=== PATIENT | female | born 1975 | race African-American/Black ===

== ENCOUNTER 2018-07-03 09:48 | Emergency (ER) | payer OTHER ==
[2018-07-03 10:02] VITALS: BP 113/68; PULSE 71; TEMP 98.8; BMI 29.3
--- NOTE | 2018-07-03 10:21 | PDOC ---
History of Present Illness - General Chief Complaint: Vaginal Bleeding Stated Complaint: VAGINAL BLEEDING Time Seen by Provider: 07/03/18 10:11 History Source: Patient Exam Limitations: Clinical Condition - History of Present Illness Initial Comments: 07/03/18 10:20 Patient with no significant past medical history LMP May 08 present with complaint of vaginal spotting since yesterday and now increased vaginal bleeding soaking 1 pad since last night. Patient report she had home test which was positive and was seen in an urgent care yesterday for vaginal spotting and test done was also positive. Patient denies N/V, dizziness , SOB, CP, palpitation. 07/03/18 10:58 Timing/Duration: 24 hours Past History - Past Medical History Allergies/Adverse Reactions: Allergies Allergy/AdvReac Type Severity Reaction Status Date / Time amoxicillin Allergy Verified 07/03/18 09:58 Penicillins Allergy Verified 07/03/18 09:58 Home Medications: Ambulatory Orders Amox-Tr/K Cl [Augmentin 875Mg Tablet] 1 tab PO BID #20 tablet 08/29/12 No Home Medications 0 dose .ROUTE UTDICT 08/29/12 COPD: No Thyroid Disease: Yes (HYPERTHYROID) - Immunization History Immunization Up to Date: Yes - Suicide/Smoking/Psychosocial Hx Smoking Status: No Smoking History: Never smoked Number of Cigarettes Smoked Daily: 0 Information on smoking cessation initiated: No Drug/Substance Use Hx: Yes (marijuana) Review of Systems - Review of Systems Able to Perform ROS?: Yes Is the patient limited Greek proficient: No Constitutional: No: Malaise, Weakness HEENTM: No: Blurred Vision Respiratory: No: Symptoms reported, Shortness of Breath Cardiac (ROS): No: Symptoms Reported, See HPI, Chest Pain, Edema, Irregular Heart Rate, Lightheadedness, Palpitations, Syncope, Chest Tightness, Other ABD/GI: No: Nausea, Vomiting, Abdominal cramping : Yes: See HPI, Other (vaginal bleeding) All Other Systems: Reviewed and Negative *Physical Exam - Vital Signs Last Vital Signs Temp Pulse Resp BP Pulse Ox 98.8 F 71 16 113/68 100 07/03/18 09:57 07/03/18 09:57 07/03/18 09:57 07/03/18 09:57 07/03/18 09:57 - Physical Exam General Appearance: Yes: Nourished, Appropriately Dressed. No: Apparent Distress HEENT: positive: Normal ENT Inspection Neck: positive: Supple Respiratory/Chest: negative: Respiratory Distress, Accessory Muscle Use Cardiovascular: negative: Regular Rhythm, Regular Rate Female Pelvic Exam: positive: normal external exam, cervical os closed, CMT, vaginal bleeding (scant dark blood in vaginal vault. no active bleeding. no visible lesions. ). negative: adnexal tenderness Gastrointestinal/Abdominal: positive: Normal Bowel Sounds, Flat, Soft. negative : Organomegaly Musculoskeletal: positive: Normal Inspection Neurologic: positive: Fully Oriented, Normal Mood/Affect Moderate Sedation - Procedure Monitoring Vital Signs: Procedure Monitoring Vital Signs Temperature 98.8 F 07/03/18 09:57 Pulse Rate 71 07/03/18 09:57 Respiratory Rate 16 07/03/18 09:57 Blood Pressure 113/68 07/03/18 09:57 O2 Sat by Pulse Oximetry (%) 100 07/03/18 09:57 ED Treatment Course - LABORATORY CBC & Chemistry Diagram: 07/03/18 11:30 07/03/18 11:30 Medical Decision Making - Medical Decision Making 07/03/18 11:08 Patient LMP May 08 present with complaint of one day history of vaginal bleeding soaking 1 pad since yesterday. Patient reported doing home test and week ago which was positive and repeat test in urgent care yesterday was also positive. Exam significant for trace dark blood in vaginal vault with no active vaginal bleeding. Cervical os close. No cervical motion tenderness. No visible lesion on exam. CBC, CMP and type and screen labs ordered. Beta hCG lab ordered. Transvaginal ultrasound ordered. 07/03/18 13:39 CBC and chemistry lab normal. Beta hcg 452. Call made to patient [facility] to ask for visit done yesterday and beta hCG done in [facility] yesterday was 860 which is 50% less today. Pelvic ultrasound shows no low laying gestational sac. Patient has f/u apt with [facility] in 2 days . Patient staple for discharge with strict instructions *DC/Admit/Observation/Transfer Diagnosis at time of Disposition: Threatened - Discharge Dispostion Disposition: HOME Condition at time of disposition: Stable Decision to Admit order: No - Referrals - Patient Instructions Printed Discharge Instructions: DI for Threatened Additional Instructions: Follow-up with [facility] 2 days as scheduled for repeat blood work. Come back to emergency room if worsening vaginal bleeding. - Post Discharge Activity Forms/Work/School Notes: Back to Work
[2018-07-03 11:47] LABS: BASO % 0.9 % (0-2.0); EOS % 2.4 % (0-4.5); HEMATOCRIT 36.6 % (32.4-45.2); HEMOGLOBIN 12.8 GM/dL (10.7-15.3); LYMPH % 24.5 % (8-40); MCH 32.1 pg (25.7-33.7); MCHC 34.8 g/dl (32.0-36.0); MEAN CELL VOLUME 92.2 fl (80-96); MEAN PLT VOLUME 9.1 fl (7.5-11.1); MONO % 8.6 % (3.8-10.2); NEUT % 63.6 % (42.8-82.8); PLATELET COUNT 245 K/MM3 (134-434); RBC 3.97 M/mm3 (3.60-5.2); WHITE BLOOD COUNT 5.1 K/mm3 (4.0-10.0)
[2018-07-03 12:06] LABS: URINE APPEARANCE CLEAR; URINE BILIRUBIN NEGATIVE (<2.0 mg/dL); URINE COLOR LTYELLOW; URINE GLUCOSE (UA) NEGATIVE (NEGATIVE); URINE KETONE NEGATIVE (NEGATIVE); URINE LEUK ESTERASE NEGATIVE (NEGATIVE); URINE NITRITE NEGATIVE (NEGATIVE); URINE PROTEIN NEGATIVE (NEGATIVE); URINE UROBILINOGEN NEGATIVE mg/dL (0.2-1.0)
[2018-07-03 12:08] LABS: EPI CELLS RARE /HPF (FEW); URINE MUCUS RARE
[2018-07-03 12:15] LABS: ALBUMIN 3.5 g/dl (3.4-5.0); ALK PHOS 87 U/L (45-117); ANION GAP 6 MMOL/L (8-16); BILIRUBIN,TOTAL 0.3 mg/dL (0.2-1); BLOOD UREA NITROGEN 8 mg/dL (7-18); CALCIUM 8.7 mg/dL (8.5-10.1); CHLORIDE 106 mmol/L (98-107); CO2 26 mmol/L (21-32); CREATININE 0.7 mg/dL (0.55-1.3); GLUCOSE,RANDOM 96 mg/dL (74-106); POTASSIUM 4.2 mmol/L (3.5-5.1); SGOT/AST 12 U/L (15-37); SGPT/ALT 16 U/L (13-61); SODIUM 139 mmol/L (136-145); TOT PROT 7.4 g/dl (6.4-8.2)
--- NOTE | 2018-07-03 13:03 | PDOC ---
*Physical Exam - Vital Signs Last Vital Signs Temp Pulse Resp BP Pulse Ox 98.8 F 71 16 113/68 100 07/03/18 09:57 07/03/18 09:57 07/03/18 09:57 07/03/18 09:57 07/03/18 09:57 - Physical Exam General Appearance: Yes: Nourished Respiratory/Chest: positive: Lungs Clear, Normal Breath Sounds Cardiovascular: positive: Regular Rhythm, Regular Rate, S1, S2 Gastrointestinal/Abdominal: positive: Normal Bowel Sounds, Flat, Soft ED Treatment Course - LABORATORY CBC & Chemistry Diagram: 07/03/18 11:30 07/03/18 11:30 - ADDITIONAL ORDERS Additional order review: Laboratory Results 07/03/18 07/03/18 11:30 11:30 Sodium 139 Potassium 4.2 Chloride 106 Carbon Dioxide 26 Anion Gap 6 L BUN 8 Creatinine 0.7 Creat Clearance w eGFR > 60 Random Glucose 96 Calcium 8.7 Total Bilirubin 0.3 AST 12 L ALT 16 Alkaline Phosphatase 87 Total Protein 7.4 Albumin 3.5 Beta HCG, Quant 457.1 Urine Color Ltyellow Urine Appearance Clear Urine pH 5.0 Ur Specific [place] 1.013 Urine Protein Negative Urine Glucose (UA) Negative Urine Ketones Negative Urine Blood 3+ H Urine Nitrite Negative Urine Bilirubin Negative Urine Urobilinogen Negative Ur Leukocyte Esterase Negative Urine WBC (Auto) 1 Urine RBC (Auto) 36 Ur Epithelial Cells Rare Urine Mucus Rare 07/03/18 11:30 RBC 3.97 MCV 92.2 MCHC 34.8 RDW 14.0 MPV 9.1 Neutrophils % 63.6 Lymphocytes % 24.5 Monocytes % 8.6 Eosinophils % 2.4 Basophils % 0.9 Medical Decision Making - Medical Decision Making 07/03/18 13:01 42 yo F here currently 6 weeks with LMP 11.15 here wtih c/o vaginal spotting. pt statesspotting started yesterday. was seen in 30 s araceli by packing room worker yesterday. had blood workdrawn bhcg was 800. today feels spotting has increased. no h/o ectopic. not lightheaded. mild cramping . no mod factors. differential threatened ab, ab in progress, ectopic. claribel labs blood type tvus. labs revealed decreasing bhcg 400, likely ongoing miscarriage, abnormal pregnanyc. ultrasound with pole in gest sac, no heart beat detected. beta low, will require repeat bhcg in 48 hrs. has appt scheduled with packing room worker . pt seen and examined in conjunction with APRIL Gomez, agree with plan.
== END 2018-07-03 13:54 | disposition home or self-care (01) ==
LOC: JER 09:48
DX: O26.891 Other specified pregnancy related conditions, first trimester (principal); O20.0 Threatened abortion; O34.11 Maternal care for benign tumor of corpus uteri, first trimester; D25.9 Leiomyoma of uterus, unspecified; Z3A.00 Weeks of gestation of pregnancy not specified
CPT/HCPCS: 36415; 76830-TC; 80053; 81003; 81015; 84702; 85025; 86850; 86900; 86901; 87086; 99282-25

== ENCOUNTER 2018-07-07 13:50 | Emergency (ER) | payer OTHER ==
[2018-07-07 14:18] VITALS: BP 113/68; PULSE 83; TEMP 98.4; BMI 29.3
--- NOTE | 2018-07-07 14:20 | PDOC ---
Rapid Medical Evaluation Chief Complaint: Vaginal Bleeding Time Seen by Provider: 07/07/18 14:17 Medical Evaluation: Allergies Allergy/AdvReac Type Severity Reaction Status Date / Time amoxicillin Allergy Verified 07/07/18 14:12 Penicillins Allergy Verified 07/07/18 14:12 07/07/18 14:18 I have performed a brief in-person evaluation of this patient. The patient presents with a chief complaint of:vaginal bleed X 2 DAYS=-scant , LMP 11/ Pertinent physical exam findings: PALE, MILD ABD PAIN I have ordered the following: CBC, bHCg, tYPE AND SCREEN, ua The patient will proceed to the ED for further evaluation. 07/07/18 14:19 Discharge Disposition - Diagnosis Vagina bleeding - Referrals - Patient Instructions - Post Discharge Activity
--- NOTE | 2018-07-07 15:56 | PDOC ---
History of Present Illness - General History Source: Patient <Chandler Oliver - Last Filed: 07/07/18 17:15> <Mirza Daley - Last Filed: 07/10/18 09:43> - General Chief Complaint: Vaginal Bleeding Stated Complaint: PAIN, 4 WEEKS PREGNED Time Seen by Provider: 07/07/18 14:17 Past History - Past Medical History COPD: No CHF: No Thyroid Disease: Yes (HYPERTHYROID) - Immunization History Immunization Up to Date: Yes - Suicide/Smoking/Psychosocial Hx Smoking Status: No Smoking History: Never smoked Have you smoked in the past 12 months: No Number of Cigarettes Smoked Daily: 0 Information on smoking cessation initiated: No Hx Alcohol Use: No Drug/Substance Use Hx: No <Chandler Oliver Last Filed: 07/07/18 17:15> <Mirza Daley - Last Filed: 07/10/18 09:43> - Past Medical History Allergies/Adverse Reactions: Allergies Allergy/AdvReac Type Severity Reaction Status Date / Time amoxicillin Allergy Verified 07/07/18 14:18 Penicillins Allergy Verified 07/07/18 14:18 Home Medications: Ambulatory Orders No Home Medications 0 dose .ROUTE UTDICT 08/29/12 Review of Systems - Review of Systems Constitutional: No: Chills, Fever ABD/GI: Yes: Abdominal cramping. No: Nausea, Vomiting : No: Dysuria <Chandler Oliver Last Filed: 07/07/18 17:15> *Physical Exam - Vital Signs Last Vital Signs Temp Pulse Resp BP Pulse Ox 98.4 F 83 16 113/68 100 07/07/18 14:13 07/07/18 14:13 07/07/18 14:13 07/07/18 14:13 07/07/18 14:13 - Physical Exam General Appearance: Yes: Appropriately Dressed. No: Apparent Distress HEENT: positive: Normal Voice Respiratory/Chest: negative: Respiratory Distress Gastrointestinal/Abdominal: positive: Soft. negative: Tender Musculoskeletal: negative: CVA Tenderness Integumentary: positive: Dry, Warm Neurologic: positive: Fully Oriented, Alert, Normal Mood/Affect <Chandler Oliver Last Filed: 07/07/18 17:15> - Vital Signs Last Vital Signs Temp Pulse Resp BP Pulse Ox 98.4 F 83 16 113/68 100 07/07/18 14:13 07/07/18 14:13 07/07/18 14:13 07/07/18 14:13 07/07/18 14:13 <Mirza Daley - Last Filed: 07/10/18 09:43> Moderate Sedation - Procedure Monitoring Vital Signs: Procedure Monitoring Vital Signs Temperature 98.4 F 07/07/18 14:13 Pulse Rate 83 07/07/18 14:13 Respiratory Rate 16 07/07/18 14:13 Blood Pressure 113/68 07/07/18 14:13 O2 Sat by Pulse Oximetry (%) 100 07/07/18 14:13 <Simon OliverSharyn - Last Filed: 07/07/18 17:15> - Procedure Monitoring Vital Signs: Procedure Monitoring Vital Signs Temperature 98.4 F 07/07/18 14:13 Pulse Rate 83 07/07/18 14:13 Respiratory Rate 16 07/07/18 14:13 Blood Pressure 113/68 07/07/18 14:13 O2 Sat by Pulse Oximetry (%) 100 07/07/18 14:13 <Mirza Daley - Last Filed: 07/10/18 09:43> Medical Decision Making - Medical Decision Making 07/07/18 15:53 42 yo F, , ~ 4 weeks by dates, seen in ED 5 days ago for vag bleed. Beta was 457. RH +. US read as gestational sac with possible pole to lower segment of uterine that was suspicious for pending . UA was neg. Here today because she continues to bleed with clots and lower abdominal cramping. No back pain, dysuria, fever or chills See exam M/l spon AB in progress +ges sac w/ ? pole on US 4 days ago suspicious for spon AB per radiology, beta was 457 Pt well jamia and stable -will rpt beta today 07/07/18 17:19 Beta 45. Pt to f/u with OB for continued trending. Stable for dc <Chandler Oliver - Last Filed: 07/07/18 17:15> - Medical Decision Making The patient was seen and evaluated in conjunction with APRIL Oliver under my direct supervision, ancillary studies were reviewed. I agree with the plan as outlined by APRIL Oliver . <Mirza Daley - Last Filed: 07/10/18 09:43> *DC/Admit/Observation/Transfer <Chandler Oliver - Last Filed: 07/07/18 17:15> <Mirza Daley - Last Filed: 07/10/18 09:43> Diagnosis at time of Disposition: Vagina bleeding - Discharge Dispostion Disposition: HOME Condition at time of disposition: Good - Patient Instructions Printed Discharge Instructions: DI for Miscarriage Additional Instructions: Please follow up with your OB to repeat beta HCG Take tylenol for any discomfort - Post Discharge Activity Forms/Work/School Notes: Back to Work
== END 2018-07-07 17:21 | disposition home or self-care (01) ==
LOC: JER 13:50
DX: O26.891 Other specified pregnancy related conditions, first trimester (principal); O20.8 Other hemorrhage in early pregnancy; Z3A.01 Less than 8 weeks gestation of pregnancy
CPT/HCPCS: 36415; 84702; 99282-25

== ENCOUNTER 2018-08-25 18:40 | Emergency (ER) | payer OTHER ==
--- NOTE | 2018-08-25 18:44 | PDOC ---
Rapid Medical Evaluation Time Seen by Provider: 08/25/18 18:42 Medical Evaluation: Allergies Allergy/AdvReac Type Severity Reaction Status Date / Time amoxicillin Allergy Verified 07/07/18 14:18 Penicillins Allergy Verified 07/07/18 14:18 08/25/18 18:42 I have performed a brief in-person evaluation of this patient. The patient presents with a chief complaint of: b/l ear pain since 09/2017 Pertinent physical exam findings: deferred I have ordered the following: nothing The patient will proceed to the ED for further evaluation. Discharge Disposition - Diagnosis Ear pain - Referrals - Patient Instructions - Post Discharge Activity
[2018-08-25 19:12] VITALS: BP 122/76; PULSE 72; TEMP 98.1; BMI 28.8
--- NOTE | 2018-08-25 20:41 | PDOC ---
History of Present Illness - General Chief Complaint: Pain Stated Complaint: EAR PAIN Time Seen by Provider: 08/25/18 18:42 - History of Present Illness Initial Comments: 08/25/18 20:36 42-year-old female presents for evaluation of decreased hearing and ear discomfort 10 months. She has no comorbidities. No systemic symptoms. Past History - Past Medical History Allergies/Adverse Reactions: Allergies Allergy/AdvReac Type Severity Reaction Status Date / Time amoxicillin Allergy Verified 08/25/18 19:06 Penicillins Allergy Verified 08/25/18 19:06 Home Medications: Ambulatory Orders No Home Medications 0 dose .ROUTE UTDICT 08/29/12 Neomycin/Polymyxn/Hc [Cortisporin Otic Suspenstion -] 5 drop OU Q4HWA 5 Days #1 drops 08/25/18 COPD: No CHF: No Thyroid Disease: Yes (HYPERTHYROID) - Immunization History Immunization Up to Date: Yes - Suicide/Smoking/Psychosocial Hx Smoking Status: No Smoking History: Never smoked Have you smoked in the past 12 months: No Number of Cigarettes Smoked Daily: 0 Information on smoking cessation initiated: No Hx Alcohol Use: No Drug/Substance Use Hx: No Review of Systems - Review of Systems HEENTM: Yes: See HPI *Physical Exam - Vital Signs Last Vital Signs Temp Pulse Resp BP Pulse Ox 98.1 F 72 18 122/76 100 08/25/18 19:06 08/25/18 19:06 08/25/18 19:06 08/25/18 19:06 08/25/18 19:06 - Physical Exam Comments: 08/25/18 20:36 Bilateral ear cerumen impaction. Moderate Sedation - Procedure Monitoring Vital Signs: Procedure Monitoring Vital Signs Temperature 98.1 F 08/25/18 19:06 Pulse Rate 72 08/25/18 19:06 Respiratory Rate 18 08/25/18 19:06 Blood Pressure 122/76 08/25/18 19:06 O2 Sat by Pulse Oximetry (%) 100 08/25/18 19:06 Medical Decision Making - Medical Decision Making 08/25/18 20:37 The ears were copiously flushed with normal saline and peroxide [id number] solution. No cerumen was expelled. Using a micro pituitary small amounts s of wax were removed. There appears to be cerumen abutting the tympanic membrane bilaterally *DC/Admit/Observation/Transfer Diagnosis at time of Disposition: Ear pain, Impacted cerumen of both ears - Discharge Dispostion Disposition: HOME Condition at time of disposition: Stable Decision to Admit order: No - Referrals Referrals: Aakash Ortiz [Primary Care Provider] - Grupo Candelaria MD [Staff Physician] - - Patient Instructions Printed Discharge Instructions: DI for Cerumen Impaction, Cerumen Impaction Additional Instructions: Please follow-up with ENT in one to 2 days for further evaluation and treatment options. Return to the emergency room for worsening symptoms. Please use the antibiotic drops prophylactically for the next 5 days as directed. - Post Discharge Activity
== END 2018-08-25 21:07 | disposition home or self-care (01) ==
LOC: JER 18:40
PROC: 3E1B78Z Irrigation of Ear using Irrigating Substance, Via Natural or Artificial Opening (ICD-10-PCS; principal; 2018-08-25)
PROC: 3E1B78Z Irrigation of Ear using Irrigating Substance, Via Natural or Artificial Opening (ICD-10-PCS; 2018-08-25)
DX: H61.23 Impacted cerumen, bilateral (principal); E05.90 Thyrotoxicosis, unspecified without thyrotoxic crisis or storm
CPT/HCPCS: 69209-50; 99281-25